=== PATIENT | female | born 1995 | race Caucasian/White ===

== ENCOUNTER 2019-12-14 16:34 | Emergency (ER) | payer OTHER ==
[~2019-12-14] VITALS: Ht 165.1 cm; Wt 57.5 kg
--- NOTE | 2019-12-14 18:32 | NUR ---
pt to room from lobby
--- NOTE | 2019-12-14 18:50 | NUR ---
PT HAS CO OF ABDOMINAL PAIN, UNABLE TO EAT FOR 5 DAYS. ABNORMAL BM. HX OF CHRONS DISEASE.
--- NOTE | 2019-12-14 18:51 | NUR ---
REPORT TO [facility]
--- NOTE | 2019-12-14 18:55 | NUR ---
assumed care of pt. report from [facility]. pt here for 1 week of diffuse abd pain and tenderness with diarrhea. she reports that she has been having blood in her stool for the last couple of days. pt reports that she has a hx of Crohns and that she may be having a flare. pt reports that she is compliant with her humira and has had no recent changes in her diet. pt reports that she does not have a current GI MD. pt also states that she was recently Dx with a sinus infection and was started on PO ABX within the last week
[2019-12-14] MEDS ORDERED: NORG1TAB90 PO (19:02)
[2019-12-14] MEDS ORDERED: ADAL40PE2 IM (19:02)
--- NOTE | 2019-12-14 19:15 | NUR ---
pt made awre that urine sample and stool sample needed. resting in position of comfort. declines pain meds at this time denies nausea, no urinary c/o
[2019-12-14 19:43] LABS: BASOPHILS # (AUTO) 0.03 x10^3/uL (0-0.1); BASOPHILS % (AUTO) 0 % (0-1); EOSINOPHILS # (AUTO) 0.12 x10^3/uL (0-0.4); EOSINOPHILS % (AUTO) 2 % (1-7); LYMPHOCYTES # (AUTO) 2.28 x10^3/uL (1-3.4); LYMPHOCYTES % (AUTO) 28 % (22-44); MD NO; MEAN CORPUSCULAR HEMOGLOBIN 30.5 pg (27.0-34.8); MEAN CORPUSCULAR HGB CONC 33.1 g/dL (32.4-35.8); MEAN CORPUSCULAR VOLUME 92.1 fL (80-100); MEAN PLATELET VOLUME 8.8 fL (7.4-10.4); MONOCYTES # (AUTO) 1.02 x10^3/uL (0.2-0.8); MONOCYTES % (AUTO) 12 % (2-9); NEUTROPHILS # (AUTO) 4.71 x10^3/uL (1.8-6.8); NEUTROPHILS % (AUTO) 58 % (42-75); PLATELET COUNT 294 x10^3/uL (130-400); RED BLOOD COUNT 4.59 x10^6/uL (3.82-5.3); RED CELL DISTRIBUTION WIDTH 11.9 % (9.6-15.2)
[2019-12-14 19:54] LABS: ALBUMIN 3.3 g/dL (3.4-5.0); ANION GAP 7 mmol/L (5-15); CALCIUM 8.9 mg/dL (8.5-10.1); CHLORIDE 112 mmol/L (98-107)
[2019-12-14 19:58] LABS: ALANINE AMINOTRANSFERASE 14 U/L (12-78); ALKALINE PHOSPHATASE 66 U/L (45-117); BILIRUBIN,TOTAL 0.5 mg/dL (0.2-1.0); TOTAL PROTEIN 7.1 g/dL (6.4-8.2)
--- NOTE | 2019-12-14 20:10 | NUR ---
pt given PO water, OK per Dr. Sullivan. pt states that she has been unable to provide urine sample or stool specimen yet. pt resting in position of comfort watching TV
--- NOTE | 2019-12-14 21:20 | NUR ---
pt reports that she is still unable to give sample at this time. resting on gurney in position of comfort
--- NOTE | 2019-12-14 21:41 | NUR ---
no changes. aware. pt given more PO fluids
--- NOTE | 2019-12-14 22:30 | NUR ---
jesus sample collected and sent. no stool specimen provided
[2019-12-14 22:50] LABS: HCG UR SG 1.008 (1.003-1.030); MICROSCOPIC AUTO
[2019-12-14] MEDS ORDERED: FOSFOMYCIN 3 GM PACKET PO ONE (23:00)
[2019-12-14] MEDS ORDERED: FOSFOMYCIN 3 GM PACKET ONE (23:19)
[2019-12-14 23:35] VITALS: BP 120/81
== END 2019-12-14 23:42 | disposition home or self-care (01) ==
LOC: ED 18:40
DX: R19.7 Diarrhea, unspecified (principal); R10.84 Generalized abdominal pain; R11.0 Nausea
CPT/HCPCS: 36415; 80053; 81001; 81025; 83690; 85025; 87086; 99285

== ENCOUNTER → 2020-02-06 | Outpatient (CLI) | payer OTHER ==
[~2020-02-06] MED LIST: ADAL40PE2 IM; NORG1TAB90 PO
== END | disposition home or self-care (01) ==
LOC: STAR 11:30
PROVIDERS: ATTEND Anesthesiology
DX: Z01.812 Encounter for preprocedural laboratory examination (principal); Z20.828 Contact with and (suspected) exposure to other viral communicable diseases
CPT/HCPCS: 36415; 87635

== ENCOUNTER 2020-02-11 05:48 | Day surgery (SDC) | payer OTHER ==
[~2020-02-11] VITALS: Ht 165.1 cm; Wt 56.8 kg
[2020-02-11] MEDS ORDERED: OXYMETAZOLINE NASAL SPRAY 0.05%, 15ML ONE (06:34)
[2020-02-11] MEDS ORDERED: LIDOCAINE 1%-EPI 1:100K, 20ML ONE (06:35)
[2020-02-11] MEDS ORDERED: LACTATED RINGERS 1,000 ML IV SCH (06:35)
[2020-02-11 06:48] LABS: HCG UR SG 1.005 (1.003-1.030)
[2020-02-11 06:49] VITALS: BP 110/77
[2020-02-11] MEDS ORDERED: NEOSPORIN OINT, 15GM ONE (06:50)
[2020-02-11] MEDS ORDERED: CHLORHEXIDINE 15 ML UDC MM ONE (07:00)
[2020-02-11] MEDS ORDERED: FENTANYL PF 250 MCG/5ML ONE (07:11)
[2020-02-11] MEDS ORDERED: PROPOFOL 50 ML ONE (07:15)
[2020-02-11] MEDS ORDERED: SUCCINYLCHOLINE 20 MG/ML, 10ML ONE (07:28)
[2020-02-11] MEDS ORDERED: DEXAMETHASONE 4 MG/ML, 1ML ONE (07:28)
[2020-02-11] MEDS ORDERED: ONDANSETRON 2MG/ML, 2ML ONE (07:28)
[2020-02-11] MEDS ORDERED: MIDAZOLAM 1 MG/ML, 2ML ONE (07:29)
[2020-02-11] MEDS ORDERED: KETOROLAC 30 MG/1 ML IVPush PRN (07:30)
[2020-02-11] MEDS ORDERED: EPHEDRINE 50 MG/ML, 1ML IVPush PRN (07:30)
[2020-02-11] MEDS ORDERED: ACETAMINOPHEN 325 MG TABLET PO PRN (07:30)
[2020-02-11] MEDS ORDERED: PROMETHAZINE 12.5 MG SUPP PR PRN (07:30)
[2020-02-11] MEDS ORDERED: LABETALOL 5MG/ML, 20ML IV PRN (07:30)
[2020-02-11] MEDS ORDERED: HYDROmorphone 1 MG/ML, 1ML INJ IVPush PRN (07:30)
[2020-02-11] MEDS ORDERED: hydrALAzine 20 MG/ML, 1ML IV PRN (07:30)
[2020-02-11] MEDS ORDERED: OXYcodone 5 MG/5 ML ORAL.SOL UDC PO PRN (07:30)
[2020-02-11] MEDS ORDERED: MEPERIDINE/PF 25MG/0.5ML IVPush PRN (07:30)
[2020-02-11] MEDS ORDERED: METHOCARBAMOL 1,000 MG in DEXTROSE 5% 100 ML IV PRN (07:30)
[2020-02-11] MEDS ORDERED: OXYcodone 5 MG/5 ML ORAL.SOL UDC ONE (08:43)
[2020-02-11] MEDS ORDERED: FENTANYL PF 100 MCG/2ML ONE (08:43)
[2020-02-11] MEDS ORDERED: ACETAMINOPHEN 650 MG/20.3 ML UDC ONE (08:43)
[2020-02-11] MEDS: FENTANYL PF 100 MCG/2ML IV PRN ×2 (08:47→08:57)
== END 2020-02-11 10:20 | disposition home or self-care (01) ==
LOC: OUT 05:48
PROVIDERS: ATTEND Otolaryngology
DX: J34.2 Deviated nasal septum (principal); J34.3 Hypertrophy of nasal turbinates; J32.8 Other chronic sinusitis; J33.0 Polyp of nasal cavity; Z98.890 Other specified postprocedural states; Z79.899 Other long term (current) drug therapy; Z88.8 Allergy status to other drugs, medicaments and biological substances; Z72.89 Other problems related to lifestyle
CPT/HCPCS: 30520; 30801; 31256; 31276; 31299; 81025; J0330; J1100; J2250; J2405; J2704; J3010; J3490; J7120